=== PATIENT | female | born 1980 | race Caucasian/White ===

== ENCOUNTER 2017-02-21 12:24 | Inpatient (IN) | payer BC, OTHER ==
[2017-02-21 13:06] VITALS: BMI 29.3
[2017-02-21] MEDS ORDERED: Lactated Ringer's 1,000 ML IV SCH ×3 (13:15→17:50)
[2017-02-21] MEDS ORDERED: AMPicillin 1 GM in Sodium Chloride 0.9% 100 ML IVPB SCH (16:00)
[2017-02-21] MEDS ORDERED: Fentanyl/Bupivacaine HCl 250 ML EPI ONE (17:26)
[2017-02-21] MEDS ORDERED: Bupivacaine HCl 0.25% PF (10 ml) Inj ONE (17:27)
[2017-02-21] MEDS ORDERED: Lidocaine 1% Inj (20ml) ONE (19:04)
[2017-02-21] MEDS: AMPicillin 1 GM in Sodium Chloride 0.9% 100 ML IVPB SCH (19:20)
--- NOTE | 2017-02-21 19:29 | OBADHP ---
Datetime: 02/21/2017 19:24 Admit Comment, IP Provider: @ 34.2wks GA with PPROM c/o of LOF around 1am, cler with irregular non painful cramping. pt denies vb, +FM OB: [employer]: denies hx of abnormal pap fibroid, ovarian cyst, STI PMH: Hypothyoid PSH: denies FHX: denies SHX denies etho/tobacc/drug MEDS: PNV, synthroid A/P G1Pp @ 34.2 wks GA IOL secondary to PPROM -cytotec po q x 1 -ampicillin for gbs prophylaxis -cont toco adn efm -NICU consult -anesthesia consult prn -cont current managmnet initially admitted to [facility] due to premature labor/deliveyr pt given options of transfer to [facility] to either LEvel III NICU with delivery by MFM or [place] with limited Level II NICU Pelvic Type - PN: Adequate Extremities - PN: Normal Abdomen - PN: Normal Back - PN: Normal Breast - PN: Not Done Lungs - PN: Normal Heart - PN: Normal Thyroid - PN: Normal Neurologic - PN: Normal HEENT - PN: Normal General - PN: Normal Presentation-Admit: Vertex FHR - Baseline A Provider: 140 Amniotic Fluid Color, Provider: Clear Membranes, Provider: Ruptured Contraction Comments Provider: q 5 min Gestation - Est Wks by US: 34.2 Pool Provider: Positive Nitrazine Provider: Positive IP Hx Assessment: The History has been Reviewed and is Current IP Chief Complaint: Suspected ruptured membranes NICHD Variability Prov Fetus A: Moderate 6-25bpm NICHD Accel Fetus A IP Provider: 15X15 FHR Category Provider Fetus A: Category I NICHD Decel Fetus A IP Provider: None Dilatation, Provider: 1-2 Effacement, Provider: 30 Station, Provider: -2 Genitourinary Exam: Normal DTRs - PN: Normal EGA AdmitDate IP: 34.2 IP Adm Impression: , intrauterine IP Admit Plan: Initiate labor induction protocol
[2017-02-21] MEDS ORDERED: Gentamicin 80mg/50ml NS 80 MG/50 ML BAG IVPB SCH ×2 (19:45→21:45)
--- NOTE | 2017-02-21 21:28 | OBDS ---
MATERNAL INFORMATION Provider Comments: pt was fully dilated and pushing, verbal consent give for RMA due to cat II track ing, atramuatic delivery of head , loose nuchal cord x 1 easily reduced. Atraumtic spontaneous deliv maicol of anterior followed by posterior shoulder followed by delivery of body. Both oral and nasal pass ages of eusebia baby were bulb suctioned. umbilcal cord ws clamped. Baby handed to mother on abdomen with neonatolgist present for delivery. Cord blood and cord gases collected and sent x 2. Spontaneous d elivery of intact placenta with membranes. Fundus boggy. Methergine IM x 1 given. Lower uterine seg ment massages, boggy, hemabate x 1 given. Fundus and lower uterine segment firm,. bilateral sulcal t ear with right mediolateral episitomy laceration repaired iwth 2-0 and 3-0 chromic. Good hemostasis, no complications live male apgars 9,9 weight of 5lbs 15.8 ounces ebl 600ml neonatolgist present for delivery no complications LABOR SUMMARY EDC: 04/02/2017 00:00 No. Babies in Womb: 1 Attempted: No Labor Anesthesia: Epidural LABOR INFORMATION Reason for Induction: Premature Rupture of Membranes Onset of Labor: 02/21/2017 01:30 Complete Dilatation: 02/21/2017 19:15 Cervical Ripening Agents: Cytotec @ Oxytocin: N/A Group B Beta Strep: Not Done Antibiotics # of Doses: 2 from [facility] Antibiotics Time of Last Dose: Ampicillin 1 gram 1920(x2 here) Steroids Given: < 24 Hours before Delivery Reason Steroids Not Administered: Not Applicable MEMBRANES Membranes Rupture Method: Spontaneous Rupture of Membranes: 02/21/2017 01:30 Amniotic Fluid Color: Clear Amniotic Fluid Amount: Moderate Amniotic Fluid Odor: Normal STAGES OF LABOR Stage 1 hrs: 17 Stage 1 min: 45
[2017-02-21] MEDS ORDERED: Oxycodone/Acetaminophen 5/325 mg Tab PO PRN (21:29)
[2017-02-21] MEDS ORDERED: Benzocaine/Menthol SPRAY TOP PRN (21:29)
[2017-02-21 23:22] LABS: HEMOGLOBIN 10.7 g/dL (12.0-16.0); MEAN CORPUSCULAR HEMOGLOBIN 29.9 pg (27.0-31.0); MEAN CORPUSCULAR HGB CONC 32.5 g/dL (33.0-37.0); RBC 3.59 Mil/uL (3.80-5.20); RED CELL DISTRIBUTION WIDTH 13.7 % (11.5-14.5); WHITE BLOOD COUNT 24.9 K/uL (4.8-10.8)
[2017-02-22] MEDS: AMPicillin 1 GM in Sodium Chloride 0.9% 100 ML IVPB SCH (01:18)
[2017-02-22] MEDS ORDERED: Benzocaine/Menthol SPRAY TOP PRN (01:45)
[2017-02-22] MEDS ORDERED: Oxycodone/Acetaminophen 5/325 mg Tab PO PRN (01:45)
[2017-02-22 03:24] VITALS: TEMP 99
[2017-02-22] MEDS ORDERED: AMPicillin 1 GM in Sodium Chloride 0.9% 100 ML IVPB SCH (04:00)
[2017-02-22] MEDS ORDERED: Gentamicin 80mg/50ml NS 80 MG/50 ML BAG IVPB SCH (05:45)
[2017-02-22 07:28] LABS: HEMOGLOBIN 9.4 g/dL (12.0-16.0); MEAN CELL VOLUME 91.5 fl (81.0-99.0); MEAN CORPUSCULAR HEMOGLOBIN 30.1 pg (27.0-31.0); MEAN CORPUSCULAR HGB CONC 32.9 g/dL (33.0-37.0); RBC 3.13 Mil/uL (3.80-5.20); RED CELL DISTRIBUTION WIDTH 13.4 % (11.5-14.5); WHITE BLOOD COUNT 21.7 K/uL (4.8-10.8)
[2017-02-22] MEDS ORDERED: Multivitamin With Minerals Tab PO SCH (09:00)
[2017-02-22] MEDS: Multivitamin With Minerals Tab PO SCH (09:34)
--- NOTE | 2017-02-22 10:57 | OBDCSUM ---
Datetime: 02/22/2017 10:56 Discharged to, Provider: Home Disch Instr Activity: Normal activity Disch Instr Diet: Regular Discharge Instructions, Provider: Routine instructions given Discharge Diagnosis, Provider: Delivery Follow up in weeks, Provider: 2 weeks Disch Referrals: None Contraception discussed, Prov: Yes Discharge Comment, Provider: precaution given
--- NOTE | 2017-02-22 10:57 | OBPPN ---
Datetime: 02/22/2017 10:50 PP Pain Prov: Within normal limits PP Nausea Prov: Denies PP Flatus Prov: Yes PP BM Prov: No PP Breasts Prov: Normal PP Heart Prov: Normal PP Lungs Prov: Normal PP Abdomen/Uterus Prov: Normal PP Lochia Prov: Normal PP Vulva/Perineum Prov: Normal PP CVA Tenderness Prov: Normal PP Extremities Prov: Normal PP C/S Incision Prov: Not Applicable PP Progress Prov: Normal PP Comments Phys Exam Prov: GEN NAD, AAO x 3 RESP: CTAB/l CVS: RRR, +S1/S2 ABD: soft, NT/ND, no guarding, no rebound tendenrses, no rigidyt FUNDUS: firm, below level of umbilcius PERINEUM: healing well, no odor, sutures intact EXT: no calf tenderness b/l, negative antwan's sign b/l PP Impression Prov: Normal progression PP Plan Prov: Continue present management; Antibiotic therapy PP Progress Note Prov: pt seen and examined and reports pain over episitomy site healing well. Pt is out of bed ambuating, voiidng, passing flatus, pt is pumping. pt denies any lightheadness, dizzyness , CP, SOB VSS PE see above a/p s/p PPD #1 doing well, with acute asympomatic blood loss anemia and chorioamntios, improv ing -f/u pm cbc -pain managmnet -perneial care: stiz bath, witch riccardo pads, dermoplast spray -encouarge ambuation, breast feeding -antibioc x 24 hour -regular diet -cont current managment IP PP Procedures: Antibiotics Vital Signs Provider PP: Reviewed; Within Normal Limits
--- NOTE | 2017-02-22 10:58 | OBDCSUM ---
Datetime: 02/22/2017 10:56 Discharged to, Provider: Home Follow up at, Provider: Dr Maldonado Disch Instr Activity: Normal activity Disch Instr Diet: Regular Discharge Instructions, Provider: Routine instructions given Discharge Diagnosis, Provider: Delivery Discharge Time: 02/23/2017 09:00 Follow up in weeks, Provider: 2 weeks Disch Referrals: None Contraception discussed, Prov: Yes Disch Activity Restrictions: No sexual activity; Nothing in vagina - [place], tampons, douche Discharge Comment, Provider: precaution given d c in am Discharge Diagnosis Prov Other: PPROM Contraception after Delivery: Not Planning to Use
[2017-02-22 12:55] LABS: BASO % 0.1 % (0.0-2.0); HEMOGLOBIN 9.4 g/dL (12.0-16.0); LYMPH # 2.5 K/uL (1.0-4.3); LYMPH % 12.2 % (20.0-40.0); MEAN CELL VOLUME 91.4 fl (81.0-99.0); MEAN CORPUSCULAR HEMOGLOBIN 29.6 pg (27.0-31.0); MEAN CORPUSCULAR HGB CONC 32.5 g/dL (33.0-37.0); MEAN PLATELET VOLUME 9.5 fl (7.2-11.7); MONO # 0.9 K/uL (0.0-0.8); MONO % 4.4 % (0.0-10.0); NEUT # 17.4 K/uL (1.8-7.0); NEUT % 83.3 % (50.0-75.0); RBC 3.18 Mil/uL (3.80-5.20); RED CELL DISTRIBUTION WIDTH 13.8 % (11.5-14.5); WHITE BLOOD COUNT 20.9 K/uL (4.8-10.8)
[2017-02-23] MEDS: Levothyroxine 88 MCG TAB PO SCH (06:11)
[2017-02-23] MEDS: Multivitamin With Minerals Tab PO SCH (09:10)
[2017-02-24] MEDS: Levothyroxine 88 MCG TAB PO SCH (06:28)
[2017-02-24] MEDS: Multivitamin With Minerals Tab PO SCH (10:26)
--- NOTE | 2017-02-24 15:37 | OBPPN ---
Datetime: 02/24/2017 07:00 PP Pain Prov: Within normal limits PP Nausea Prov: Denies PP Flatus Prov: Yes PP BM Prov: No PP Breasts Prov: Normal PP Heart Prov: Normal PP Lungs Prov: Normal PP Abdomen/Uterus Prov: Normal PP Lochia Prov: Normal PP Vulva/Perineum Prov: Normal PP CVA Tenderness Prov: Normal PP Extremities Prov: Normal PP C/S Incision Prov: Normal PP Progress Prov: Normal PP Impression Prov: Normal progression PP Plan Prov: Discharge IP PP Procedures: None Vital Signs Provider PP: Reviewed; Within Normal Limits Datetime: 02/23/2017 08:34 PP Progress Note Prov: pt seen and examined reports pain over peinerum and idzzyness. pt report ligh theadnes when waling. Pt denies any fver, chills, nauase, vomting, CP, SOB. Pt amubuating, voiding, passing, VSS PE see above a/p s/p PPD #2 with sympaomtic blood loss anemia, -f/u stat cbc -ivh -regular diet -iron -cont current mangament
--- NOTE | 2017-02-24 15:38 | OBPPN ---
Datetime: 02/24/2017 07:00 PP Progress Note Prov: pt seen and examined and report feeling better. pt states dizzyness has impro layla, deise any lightheadness, cp, sob, fver, chills, nause, vomiting VSS PE see above a/p s/p PPD #3 with aute blood loss anemia, currently stable for discharg e-d/c home f/u office 2 week prectuiona given
--- NOTE | 2017-02-24 15:40 | OBDCSUM ---
Datetime: 02/24/2017 15:38 Discharged to, Provider: Home Follow up at, Provider: Dr Maldonado Disch Instr Activity: Normal activity Disch Instr Diet: Regular Discharge Instructions, Provider: Routine instructions given Discharge Diagnosis, Provider: Delivery Discharge Time: 02/24/2017 09:00 Follow up in weeks, Provider: 2 weeks Disch Referrals: None Contraception discussed, Prov: Yes Disch Activity Restrictions: No sexual activity; Nothing in vagina - [place], tampons, douche Discharge Comment, Provider: precautins given Contraception after Delivery: Not Planning to Use
--- NOTE | 2017-03-10 22:04 | OBHP ---
Datetime: 02/21/2017 19:24 IP Adm Impression: , intrauterine IP Admit Plan: Initiate labor induction protocol Admit Comment, IP Provider: @ 34.2wks GA with PPROM c/o of LOF around 1am, cler with irregular non painful cramping. pt denies vb, +FM OB: [employer] SPLICER: denies hx of abnormal pap fibroid, ovarian cyst, STI PMH: Hypothyoid PSH: denies FHX: denies SHX denies etho/tobacc/drug MEDS: PNV, synthroid A/P G1Pp @ 34.2 wks GA IOL secondary to PPROM -cytotec po q x 1 -ampicillin for gbs prophylaxis -cont toco adn efm -NICU consult -anesthesia consult prn -cont current managmnet initially admitted to [facility] however due to premature labor/deliveyr pt given options of transfer to [facility] to either LEvel III NICU with delivery by [facility] or [place] with limited Level II N ICU. pt opted for transfer to [place], althought advised may still need transfer of baby to level III . Pt was seen ane exaqmine by me 8am at [facility] prior to transfer and was infomred of examin atin findindg diagnosis. Pelvic Type - PN: Adequate Extremities - PN: Normal Abdomen - PN: Normal Back - PN: Normal Breast - PN: Not Done Lungs - PN: Normal Heart - PN: Normal Thyroid - PN: Normal Neurologic - PN: Normal HEENT - PN: Normal General - PN: Normal Presentation-Admit: Vertex FHR - Baseline A Provider: 140 Amniotic Fluid Color, Provider: Clear Membranes, Provider: Ruptured Contraction Comments Provider: q 5 min Gestation - Est Wks by US: 34.2 Pool Provider: Positive Nitrazine Provider: Positive IP Hx Assessment: The History has been Reviewed and is Current EGA AdmitDate IP: 34.2 IP Indication for Induction: PROM IP Chief Complaint: Suspected ruptured membranes NICHD Variability Prov Fetus A: Moderate 6-25bpm NICHD Accel Fetus A IP Provider: 15X15 FHR Category Provider Fetus A: Category I NICHD Decel Fetus A IP Provider: None Dilatation, Provider: 1-2 Effacement, Provider: 30 Station, Provider: -2 Genitourinary Exam: Normal DTRs - PN: Normal
--- NOTE | 2017-03-13 17:33 | OBPN ---
Datetime: 02/21/2017 19:24 Pool Provider: Positive Nitrazine Provider: Positive Membranes, Provider: Ruptured Amniotic Fluid Color, Provider: Clear Contraction Comments Provider: q 5 min FHR - Baseline A Provider: 140 Gestation - Est Wks by US: 34.2 Presentation-Admit: Vertex NICHD Accel Fetus A IP Provider: 15X15 FHR Category Provider Fetus A: Category I NICHD Variability Prov Fetus A: Moderate 6-25bpm Dilatation, Provider: 1-2 Effacement, Provider: 30 Station, Provider: -2 NICHD Decel Fetus A IP Provider: None
== END 2017-02-24 19:00 | disposition home or self-care (01) | DRG 775 ==
LOC: H.EROB2 12:24 → H.L&D 12:29 → H.EROB2 13:49 → H.OB/GYN 02-22 00:30
PROVIDERS: ADMIT Obstetrics & Gynecology; ATTEND Obstetrics & Gynecology
PROC: 10E0XZZ Delivery of Products of Conception, External Approach (ICD-10-PCS; principal; 2017-02-21)
PROC: 4A0HXCZ Measurement of Products of Conception, Cardiac Rate, External Approach (ICD-10-PCS; 2017-02-21)
PROC: 0W8NXZZ Division of Female Perineum, External Approach (ICD-10-PCS; 2017-02-21)
PROC: 0KQM0ZZ Repair Perineum Muscle, Open Approach (ICD-10-PCS; 2017-02-21)
DX: O60.14X0 Preterm labor third trimester with preterm delivery third trimester, not applicable or unspecified (principal); O41.1230 Chorioamnionitis, third trimester, not applicable or unspecified; D62 Acute posthemorrhagic anemia; O90.81 Anemia of the puerperium; O42.013 Preterm premature rupture of membranes, onset of labor within 24 hours of rupture, third trimester; O70.1 Second degree perineal laceration during delivery; Z3A.34 34 weeks gestation of pregnancy; O69.81X0 Labor and delivery complicated by cord around neck, without compression, not applicable or unspecified; O99.283 Endocrine, nutritional and metabolic diseases complicating pregnancy, third trimester; E03.9 Hypothyroidism, unspecified; Z37.0 Single live birth

== ENCOUNTER 2018-11-03 11:52 | Inpatient (IN) | payer BC ==
[2018-11-03 12:17] VITALS: BMI 29.8
[2018-11-03] MEDS ORDERED: Lactated Ringer's 1,000 ML IV ONE (12:37)
[2018-11-03] MEDS ORDERED: Oxytocin 30 UNIT in NS 500 ml 30 UNITS/500 ML BAG IV ONE ×2 (12:42→13:17)
[2018-11-03] MEDS ORDERED: OXYTOCIN/0.9 % NS 20 UNIT/1,000 ML BAG IV ONE (12:42)
[2018-11-03 13:11] LABS: EOS % 0.2 % (0.0-4.0); HEMOGLOBIN 12.4 g/dL (12.0-16.0); LYMPH # 2.4 K/uL (1.0-4.3); LYMPH % 18.6 % (20.0-40.0); MEAN CELL VOLUME 91.9 fl (81.0-99.0); MEAN CORPUSCULAR HEMOGLOBIN 30.3 pg (27.0-31.0); MEAN PLATELET VOLUME 11.1 fl (7.2-11.7); MONO # 0.5 K/uL (0.0-0.8); NEUT % 77.2 % (50.0-75.0); RBC 4.08 Mil/uL (3.80-5.20); RED CELL DISTRIBUTION WIDTH 13.8 % (11.5-14.5); WHITE BLOOD COUNT 12.9 K/uL (4.8-10.8)
[2018-11-03] MEDS: Lactated Ringer's 1,000 ML IV SCH ×2 (13:30→18:45)
--- NOTE | 2018-11-03 16:41 | OBHP ---
Datetime: 11/03/2018 12:51 IP Adm Impression: Term, intrauterine ; No Active Labor; Intact Membranes IP Chief Complaint Other: Early labor IP Admit Plan: Admit to unit; Initiate labor protocol Admit Comment, IP Provider: Pt is a 38 y/o AMA, F EGA of 37.5 week BO 11/19/18 LMP 02/12/18. Patient was sent by Dr. Maldonado for admission, possible ROM, reports wet spot on her underwear and has red vaginal spotting, reports lower back pain since yesterday. Reports good movement. Denies he adaches, blurry vision, SOB, chest pain, dizziness, N/V, diarrhea, constipation or dysuria. Provider: Dr. Maldonado PMHx: Hypothyroidism Meds: PNV, Synthroid 100mcg QD- last took today FMHx: Brother epilepsy Allergies: NKDA SurgHx: 2011 ETOP SOCHx: Denies EthOH, tobacco, or drug use OBGYN: AMA, No complications, Last pap 08/15/18 negative, denies hx of stds 1 induced 2009 1 PPROM Labs: ABO: A+, GC/CHl unknown, AB neg, HIV neg, HepB-neg, Rubella-Immune, GBS neg Assessment Pt is a 38 y/o AMA, F EGA of 37.[address] Maldonado for admission Plan: -Admit to L _ D -Initiate labor protocol -Monitor VS -Bimanual 5cm/80% -Monitor FHR tracing 150's, moderate variability, 15x15, category 1 Case reviewed and discussed with attending Tran Rubio PGY1 OB Hospitalist note: Pt was seen. She started to have symptoms after being seen at the office at 8:30am. Early labor disucssed. Her questions answered. Admit to L_D. Discuccsed with PMD - no cervical change in 4hr . .. startPitoicn augmentation. Pt agreed. MAHNDO Extremities - PN: Normal Abdomen - PN: Normal Lungs - PN: Normal Heart - PN: Normal Neurologic - PN: Normal HEENT - PN: Normal General - PN: Normal FHR - Baseline A Provider: 150 Membranes, Provider: Intact Comments, ACOG Physical Exam: GEN: Lying in bed NAD HEENT: NCAT CARD: RRR + S1S2 RESP: CTA, no wheezing, rales or rhonchi GI: + BS, nontender to palpation EXT: no edema, no calf tenderness Bimanual 5cm/80%effaced brownish discharge notes Monitor FHR tracing 150's, moderate variability, 15x15, category 1 Pool Provider: Negative IP Hx Assessment: The History has been Reviewed and is Current EGA AdmitDate IP: 37.5 Vital Signs Provider: Reviewed; Within Normal Limits IP Chief Complaint: Suspected ruptured membranes NICHD Variability Prov Fetus A: Moderate 6-25bpm NICHD Accel Fetus A IP Provider: 15X15 FHR Category Provider Fetus A: Category I NICHD Decel Fetus A IP Provider: None Dilatation, Provider: 5 Effacement, Provider: 80 Genitourinary Exam: Normal
--- NOTE | 2018-11-03 17:37 | OBADHP ---
Datetime: 11/03/2018 12:51 IP Chief Complaint Other: Early labor Admit Comment, IP Provider: Pt is a 38 y/o AMA, F EGA of 37.5 week BO 11/19/18 LMP 02/12/18. Patient was sent by Dr. Maldonado after pt evautieod in office c/o ctx pain 4-5cm dilated, with possible ROM, reports wet spot on her underwear and has red vaginal spotting, reports lower back pain since ye . Reports good movement. Denies headaches, blurry vision, SOB, chest pain, dizziness, N/ V, diarrhea, constipation or dysuria. Provider: Dr. Maldonado PMHx: Hypothyroidism Meds: PNV, Synthroid 100mcg QD- last took today FMHx: Brother epilepsy Allergies: NKDA SurgHx: 2011 ETOP SOCHx: Denies EthOH, tobacco, or drug use OBGYN: AMA, No complications, Last pap 08/15/18 negative, denies hx of stds 1 induced 2009 1 PPROM 35.3 wks Labs: ABO: A+, GC/CHl unknown, AB neg, HIV neg, HepB-neg, Rubella-Immune, GBS neg Assessment Pt is a 38 y/o AMA, F EGA of 37.5wks GA in labor Plan: -Admit to L _ D -Initiate labor protocol -Monitor VS -Bimanual 5cm/80% -Monitor FHR tracing 150's, moderate variability, 15x15, category 1 Case reviewed and discussed with attending Tran Rubio PGY1 OB Hospitalist note: Pt was seen. She started to have symptoms after being seen at the office at 8:30am. Early labor disucssed. Her questions answered. Admit to L_D. Discuccsed with PMD - no cervical change in 4hr . .. startPitoicn augmentation. Pt agreed. PENNY pt seen and examined in labor s/p arom reuqesing peiudra pain manamgent cont toco adn sven Maldonado MD Extremities - PN: Normal Abdomen - PN: Normal Lungs - PN: Normal Heart - PN: Normal Neurologic - PN: Normal HEENT - PN: Normal General - PN: Normal FHR - Baseline A Provider: 150 Membranes, Provider: Intact Comments, ACOG Physical Exam: GEN: Lying in bed NAD HEENT: NCAT CARD: RRR + S1S2 RESP: CTA, no wheezing, rales or rhonchi GI: + BS, nontender to palpation EXT: no edema, no calf tenderness Bimanual 5cm/80%effaced brownish discharge notes Monitor FHR tracing 150's, moderate variability, 15x15, category 1 Pool Provider: Negative IP Hx Assessment: The History has been Reviewed and is Current Vital Signs Provider: Reviewed; Within Normal Limits IP Chief Complaint: Suspected ruptured membranes NICHD Variability Prov Fetus A: Moderate 6-25bpm NICHD Accel Fetus A IP Provider: 15X15 FHR Category Provider Fetus A: Category I NICHD Decel Fetus A IP Provider: None Dilatation, Provider: 5 Effacement, Provider: 80 Station, Provider: -2 Genitourinary Exam: Normal EGA AdmitDate IP: 37.5 IP Adm Impression: Term, intrauterine ; No Active Labor IP Admit Plan: Admit to unit; Initiate labor protocol
[2018-11-03] MEDS ORDERED: Lactated Ringer's 1,000 ML IV SCH (17:45)
[2018-11-03] MEDS ORDERED: Bupivacaine HCl 0.25% PF (10 ml) Inj ONE (17:52)
[2018-11-03] MEDS ORDERED: Fentanyl/Bupivacaine HCl 250 ML EPI ONE (18:16)
[2018-11-03] MEDS ORDERED: Benzocaine/Menthol SPRAY TOP PRN (22:58)
[2018-11-03] MEDS ORDERED: Oxycodone/Acetaminophen 5/325 mg Tab PO PRN ×2 (22:58)
--- NOTE | 2018-11-03 23:02 | OBDS ---
MATERNAL INFORMATION Delivery Anesthesia: Epidural Medications in Delivery: pitocin Maternal Complications: None Provider Comments: patient was fully dilated and pushing. atruamtic, spontaneous delivery of head, n o nuchal cord noted. atruatmic, spontaneous delivery of anterior followed by posterior shoulder follo wed by deliver of the body. both oral and nasal passages of the baby were bulb suctioned. umbilical c ord was clamped and cut. baby hadned to mother on abdomen with RN brooke. Cord Blood and tissue obtained for stem cells. Cord blood obtained x 2. Spontaneous delivery of intact placenta with membra maxime. fundus firm. Lower uterine segment boggy, bimausl massage. Methergine IM x 1. Uterus firm. Seco nd degree perineal laceration noted and repoared wih 2-0 and 3-0 chromic. GOod hemostais, no compilca tions Live male ifnat agpars 9,9 weight of 7lbs 8 ounces ebl 400ml LABOR SUMMARY EDC: 11/19/2018 00:00 No. Babies in Womb: 1 Attempted: No Labor Anesthesia: Epidural LABOR INFORMATION Reason for Induction: Not Applicable Onset of Labor: 11/03/2018 17:00 Oxytocin: Augmentation Group B Beta Strep: Negative Steroids Given: None Reason Steroids Not Administered: Not Applicable MEMBRANES Membranes Rupture Method: Artificial Rupture of Membranes: 11/03/2018 17:22 Amniotic Fluid Color: Clear Amniotic Fluid Amount: Scant Amniotic Fluid Odor: Normal PRESENTATION/POSITION BABY A Presentation: Cephalic IDENTIFICATION/MEDS BABY A ID Band Number: [id number]
[2018-11-04] MEDS ORDERED: Oxycodone/Acetaminophen 5/325 mg Tab PO PRN ×2 (01:06)
[2018-11-04] MEDS ORDERED: Benzocaine/Menthol SPRAY TOP PRN (01:06)
[2018-11-04] MEDS ORDERED: Levothyroxine 100 MCG TAB PO SCH (06:30)
[2018-11-04 06:52] LABS: BASO % 0.1 % (0.0-2.0); EOS % 0.1 % (0.0-4.0); LYMPH # 2.5 K/uL (1.0-4.3); LYMPH % 12.7 % (20.0-40.0); MEAN CELL VOLUME 90.7 fl (81.0-99.0); MEAN CORPUSCULAR HEMOGLOBIN 30.7 pg (27.0-31.0); MEAN CORPUSCULAR HGB CONC 33.9 g/dL (33.0-37.0); MEAN PLATELET VOLUME 10.6 fl (7.2-11.7); MONO # 0.9 K/uL (0.0-0.8); MONO % 4.7 % (0.0-10.0); NEUT # 16.1 K/uL (1.8-7.0); NEUT % 82.4 % (50.0-75.0); RBC 3.57 Mil/uL (3.80-5.20); RED CELL DISTRIBUTION WIDTH 13.9 % (11.5-14.5)
[2018-11-04] MEDS: Levothyroxine 100 MCG TAB PO SCH (06:53)
[2018-11-04 07:00] LABS: WHITE BLOOD COUNT 19.5 K/uL (4.8-10.8)
--- NOTE | 2018-11-04 07:00 | OBPN ---
Datetime: 11/03/2018 17:30 IP Progress Note Comment: LATE ENTRY -PMD watned AROM SVE 4-5cm Discussion with pt about labor, medicatoins, AROM, and its risks/complications...she undrstood. H er questoins answered. AROM clear fluid for augmentation Datetime: 11/03/2018 12:51 Pool Provider: Negative Membranes, Provider: Intact FHR - Baseline A Provider: 150 Vital Signs Provider: Reviewed; Within Normal Limits NICHD Accel Fetus A IP Provider: 15X15 FHR Category Provider Fetus A: Category I NICHD Variability Prov Fetus A: Moderate 6-25bpm Dilatation, Provider: 5 Effacement, Provider: 80 Station, Provider: -2 NICHD Decel Fetus A IP Provider: None
[2018-11-04] MEDS ORDERED: Influenza Vaccine 60 mcg/0.5 mL SYR (4YR UP) IM ONE (07:29)
[2018-11-04] MEDS: Multivitamin With Minerals Tab PO SCH (08:21)
[2018-11-04] MEDS ORDERED: Multivitamin With Minerals Tab PO SCH (09:00)
[2018-11-05] MEDS: Levothyroxine 100 MCG TAB PO SCH (06:23)
[2018-11-05 06:48] LABS: BASO % 0.3 % (0.0-2.0); EOS # 0.2 K/uL (0.0-0.7); EOS % 1.3 % (0.0-4.0); HEMOGLOBIN 10.3 g/dL (12.0-16.0); LYMPH # 3.3 K/uL (1.0-4.3); LYMPH % 23.2 % (20.0-40.0); MEAN CELL VOLUME 92.6 fl (81.0-99.0); MEAN CORPUSCULAR HEMOGLOBIN 30.7 pg (27.0-31.0); MEAN CORPUSCULAR HGB CONC 33.1 g/dL (33.0-37.0); MEAN PLATELET VOLUME 10.6 fl (7.2-11.7); MONO # 0.8 K/uL (0.0-0.8); MONO % 5.3 % (0.0-10.0); NEUT # 9.8 K/uL (1.8-7.0); NEUT % 69.9 % (50.0-75.0); RBC 3.35 Mil/uL (3.80-5.20); RED CELL DISTRIBUTION WIDTH 13.7 % (11.5-14.5); WHITE BLOOD COUNT 14.1 K/uL (4.8-10.8)
[2018-11-05] MEDS: Multivitamin With Minerals Tab PO SCH (09:37)
[2018-11-05] MEDS ORDERED: Oxycodone/Acetaminophen 5/325 mg Tab PO PRN (10:00)
[2018-11-05 19:14] VITALS: BP 111/64; PULSE 90; RESP 20; TEMP 97.7; O2SAT 99
== END 2018-11-05 14:50 | disposition home or self-care (01) | DRG 807 ==
LOC: H.L&D 12:37 → H.OB/GYN 11-04 00:35
PROVIDERS: ADMIT Obstetrics & Gynecology; ATTEND Obstetrics & Gynecology
PROC: 10E0XZZ Delivery of Products of Conception, External Approach (ICD-10-PCS; principal; 2018-11-03)
PROC: 0KQM0ZZ Repair Perineum Muscle, Open Approach (ICD-10-PCS; 2018-11-03)
PROC: 4A1HXCZ Monitoring of Products of Conception, Cardiac Rate, External Approach (ICD-10-PCS; 2018-11-03)
DX: O70.1 Second degree perineal laceration during delivery (principal); Z37.0 Single live birth; O99.284 Endocrine, nutritional and metabolic diseases complicating childbirth; E03.9 Hypothyroidism, unspecified; Z3A.37 37 weeks gestation of pregnancy